=== PATIENT | male | born 1980 | race American Indian/Alaskan Native ===

== ENCOUNTER 2018-01-23 17:35 | Emergency (ER) | payer MEDICARE ==
[2018-01-23 18:08] LABS: Basophils % (Auto) 0.4 % (0.0-1.8); Eosinophils # (Auto) 0.1 K/mm3 (0.0-0.4); Eosinophils % (Auto) 0.6 % (0.0-4.3); Hematocrit 44.6 % (35.5-45.6); Hemoglobin 15.2 gm/dl (11.8-15.2); Lymphocytes # (Auto) 1.4 K/mm3 (1.2-5.4); Lymphocytes % (Auto) 12.8 % (13.4-35.0); Mean Corpuscular HGB Conc 34 % (32-34); Mean Corpuscular Hemoglobin 30 pg (28-32); Mean Corpuscular Volume 88 fl (84-94); Monocytes # (Auto) 0.4 K/mm3 (0.0-0.8); Monocytes % (Auto) 3.4 % (0.0-7.3); Platelet Count 322 K/mm3 (140-440); Red Blood Count 5.04 M/mm3 (3.65-5.03); Red Cell Distribution Width 13.7 % (13.2-15.2)
--- NOTE | 2018-01-23 18:16 | Emergency Department Report ---
ED General Adult HPI - General Chief complaint: Hypoglycemia Stated complaint: HYPOGLYCEMIA Time Seen by Provider: 01/23/18 18:02 Source: patient, family, EMS Mode of arrival: Stretcher Limitations: No Limitations - History of Present Illness Initial comments: 37-year-old male since emergency room with complaints of low blood sugar. Patient states he doesn't recall how low his blood pressure got additionally felt weak. Patient is unsure if he lost consciousness. Patient's blood sugar was 31 at home and was given glucose and an soda. Patient blood sugar now is 237. Patient denies any pain. Patient denies fatigue and weakness. Patient states he is feeling back to normal. Per EMS patient has some confusion when his blood sugar was still low. Patient also states he felt weak when it was low as well. Patient states that he might eaten less than he normally eats and took his regular dose of insulin -: Sudden Improves with: eating Worsens with: none Associated Symptoms: confusion, weakness. denies: chest pain, cough, diaphoresis, fever/chills, headaches, loss of appetite, malaise, nausea/vomiting , rash, seizure, shortness of breath, syncope Treatments Prior to Arrival: none, other (oral glucose and food) - Related Data Previous Rx's Medication Instructions Recorded Last Taken Type Insulin Aspart [NovoLOG Flexpen] See Protocol SQ AC #5 pen 12/08/15 Unknown Rx Insulin Glargine,Hum.rec.anlog 30 units SQ QHS #5 pen 12/08/15 Unknown Rx [Lantus Solostar] Pen Needle, Diabetic [1St Tier 1 each ACHS #100 dis.needle 12/08/15 Unknown Rx Unifine Pentips Plus] Allergies Allergy/AdvReac Type Severity Reaction Status Date / Time No Known Allergies Allergy Verified 12/06/15 04:28 ED Review of Systems ROS: Stated complaint: HYPOGLYCEMIA Other details as noted in HPI Constitutional: denies: chills, fever Eyes: denies: eye pain, eye discharge, vision change ENT: denies: ear pain, throat pain Respiratory: denies: cough, shortness of breath, wheezing Cardiovascular: denies: chest pain, palpitations Endocrine: no symptoms reported Gastrointestinal: denies: abdominal pain, nausea, diarrhea Genitourinary: denies: urgency, dysuria Musculoskeletal: denies: back pain, joint swelling, arthralgia Skin: denies: rash, lesions Neurological: denies: headache, paresthesias Psychiatric: denies: anxiety, depression Hematological/Lymphatic: denies: easy bleeding, easy bruising ED Past Medical Hx - Past Medical History Previous Medical History?: Yes Hx Diabetes: Yes Hx Asthma: No Hx COPD: No - Surgical History Past Surgical History?: No - Family History Family history: hypertension - Social History Smoking Status: Never Smoker Substance Use Type: None - Medications Home Medications: Home Medications Medication Instructions Recorded Confirmed Last Taken Type Insulin Aspart [NovoLOG Flexpen] See Protocol SQ AC #5 pen 12/08/15 Unknown Rx Insulin Glargine,Hum.rec.anlog 30 units SQ QHS #5 pen 12/08/15 Unknown Rx [Lantus Solostar] Pen Needle, Diabetic [1St Tier 1 each ACHS #100 dis.needle 12/08/15 Unknown Rx Unifine Pentips Plus] ED Physical Exam - General Limitations: No Limitations General appearance: alert, in no apparent distress - Head Head exam: Present: atraumatic, normocephalic - Eye Eye exam: Present: normal appearance - ENT ENT exam: Present: mucous membranes moist - Neck Neck exam: Present: normal inspection - Respiratory Respiratory exam: Present: normal lung sounds bilaterally. Absent: respiratory distress - Cardiovascular Cardiovascular Exam: Present: regular rate, normal rhythm. Absent: systolic murmur, diastolic murmur, rubs, gallop - GI/Abdominal GI/Abdominal exam: Present: soft, normal bowel sounds - Rectal Rectal exam: Present: deferred - Extremities Exam Extremities exam: Present: normal inspection - Back Exam Back exam: Present: normal inspection - Neurological Exam Neurological exam: Present: alert, oriented X3 - Psychiatric Psychiatric exam: Present: normal affect, normal mood - Skin Skin exam: Present: warm, dry, intact, normal color. Absent: rash ED Course Vital Signs 01/23/18 19:05 Temperature 97.8 F Pulse Rate 82 Respiratory 18 Rate Blood Pressure 164/83 [Left] O2 Sat by Pulse 99 Oximetry - Reevaluation(s) Reevaluation #1: Patient resting in bed comfortably patient appears stable. We'll recheck patient's blood sugar. 01/23/18 18:42 Reevaluation #2: Patient stable. Patient states he feels good and ready go home. Patient states he is back to normal. Patient appears to be stable for discharge. Blood sugar is high due to the amount of oral intake or in the prehospital period. Patient advised to check blood sugar at home and treat with his home sliding scale carefully. Patient given discharge instructions. Patient given return to Hospital instructions. Patient advised to eat regular diet and continue his medications. Patient voiced understanding of all instructions. 01/23/18 19:27 Blood sugar is 398. Patient told to monitor blood sugar at home and follow up if needed in the ER and definite follow up with primary care in 2-3 days. She states she has insulin sliding scale and blood sugar monitoring machine at home. Patient instructed to be cautious with insulin he is giving himself because of the risk of hypoglycemia 01/23/18 19:36 ED Medical Decision Making - Lab Data Result diagrams: 01/23/18 17:47 01/23/18 17:47 - Medical Decision Making Patient is a 37-year-old male presents emergency room after hypoglycemic event brought in by EMS. Patient was given multiple rounds of oral glucose and sugar in the prehospital period. Patient's glucose has been elevated as entire stay in the hospital. The rest of his labs are unremarkable. Patient's given all lab results discussed all details of visit with patient. Patient is stable for discharge patient will be discharged home with follow-up instructions and discharge instructions. - Differential Diagnosis glycemia. Adequate fluid intake. Overdose of insulin. Dm. renal insuff Critical care attestation.: If time is entered above; I have spent that time in minutes in the direct care of this critically ill patient, excluding procedure time. ED Disposition Clinical Impression: Hypoglycemia Type 1 diabetes Qualifiers: Diabetes mellitus complication status: without complication Qualified Code(s): E10.9 - Type 1 diabetes mellitus without complications Disposition: DC-01 TO HOME OR SELFCARE Is pt being admited?: No Does the pt Need Aspirin: No Condition: Stable Instructions: Diabetic Hypoglycemia (ED) Additional Instructions: Patient to follow up with primary care in 2-3 days. Patient to return to ER if condition worsens. Patient to take all medications as directed by his physician. Patient to eat regular diabetic diet. Patient to monitor blood sugars regularly. Patient to return to ER if necessary. Patient to increase water. Time of Disposition: 19:30
[2018-01-23 18:21] LABS: BUN/Creatinine Ratio 10; Blood Urea Nitrogen 10 mg/dL (9-20); Calcium 8.8 mg/dL (8.4-10.2); Hemolysis Index 11
[2018-01-23 19:06] VITALS: BP 164/83
[2018-01-23 19:07] LABS: Bacteria,Urine 1+ /HPF (Negative); Bilirubin,Urine NEG (Negative); Blood,Urine MOD (Negative); Color,Urine Yellow (Yellow); Mucus,Urine FEW /HPF; Urobilinogen,Urine < 2.0 mg/dL (<2.0)
== END 2018-01-23 19:51 | disposition home or self-care (01) ==
LOC: ED 17:35
DX: E10.649 Type 1 diabetes mellitus with hypoglycemia without coma (principal); Z79.4 Long term (current) use of insulin
CPT/HCPCS: 36415; 80048; 81001; 82962; 85025